=== PATIENT | female | born 1985 | race American Indian/Alaskan Native ===

== ENCOUNTER 2017-04-07 00:15 | Emergency (ER) | payer SELFPAY ==
[2017-04-07 00:57] VITALS: BP 122/72
[2017-04-07] MEDS ORDERED: MOTRIN PO ONE (05:10)
--- NOTE | 2017-04-07 05:10 | Emergency Department Report ---
HPI - General Chief Complaint: Sore Throat Time Seen by Provider: 04/07/17 04:38 - HPI HPI: Patient reports sore throat, left ear pain 3 days. Sore throat is sent to 10. She says she had a fever. Denies any drooling, denies any nausea or vomiting. Denies any cough, chest pain or shortness of breath. She also says she is having pain radiating from her throat to her left ear. Denies any abdominal or back pain. [id number] medication taken without any relief. ED Past Medical Hx - Past Medical History Previous Medical History?: No - Surgical History Past Surgical History?: No Additional Surgical History: vaginal x3 - Family History Family history: no significant - Social History Smoking Status: Current Every Day Smoker Substance Use Type: Alcohol - Medications Home Medications: Home Medications Medication Instructions Recorded Confirmed Last Taken Type HYDROcodone/APAP 5-325 [[place] 1 each PO Q6HR PRN #12 tablet 06/24/14 Unknown Rx 5/325] Ondansetron [Zofran] 8 mg PO Q8HR PRN #12 tablet 06/24/14 Unknown Rx Cephalexin [Keflex] 500 mg PO BID #14 capsule 12/07/15 Unknown Rx Sulfamethoxazole/Trimethoprim 1 each PO BID #14 tablet 12/07/15 Unknown Rx [Bactrim DS TAB] Cetirizine HCl [ZyrTEC] 10 mg PO QDAY #10 capsule 04/07/17 Unknown Rx Ibuprofen [Motrin 800 MG tab] 800 mg PO Q8H PRN #15 tablet 04/07/17 Unknown Rx Penicillin V Potassium 500 mg PO Q8H 10 Days #30 tablet 04/07/17 Unknown Rx ED Review of Systems ROS: Stated complaint: SORE THROAT,LEFT EAR PAIN Other details as noted in HPI Comment: All other systems reviewed and negative Constitutional: fever Eyes: denies: eye pain, eye discharge ENT: ear pain, throat pain. denies: dental pain, hearing loss, epistaxis, congestion Respiratory: no symptoms reported Cardiovascular: denies: chest pain, palpitations, dyspnea on exertion, orthopnea , edema, syncope, paroxysmal nocturnal dyspnea Gastrointestinal: denies: abdominal pain, nausea, vomiting, constipation Genitourinary: denies: dysuria, frequency, hematuria, discharge Musculoskeletal: denies: back pain, joint swelling, arthralgia, myalgia Skin: denies: rash Neurological: denies: headache Physical Exam - Physical Exam Vital Signs: Vital Signs 04/07/17 04/07/17 00:49 00:54 Temperature 99.1 F 99.1 F Pulse Rate 61 59 L Respiratory 18 18 Rate Blood Pressure 122/72 122/72 O2 Sat by Pulse 97 99 Oximetry General: This is a 31-year-old female well-nourished well-developed Physical Exam: Head: Normocephalic atraumatic Ears:BIateral TM congested without erythema and loss of bony landmarks. Chirag EAC with normal exam. No mastoid bone tenderness. Mouth: Moist, no pharyngeal erythema or exudate . Bilateral tonsillar erythema and enlarged at 2+ without exudate. UVULA midline and oral airways patent. No peritonsillar abscess. Neck: Nontender to palpate, supple, normal range of motion. Positive anterior cervical adenopathy. No c-spine tenderness. Extremity: No clubbing, cyanosis or edema. +2 pulses all extremities and no neurovascular compromise Abdomen:, Nontender to palpate in all quadrants, no guarding or rebound tenderness and no CVA tenderness. Normal bowel sounds in all quadrants Nose: Bilateral nasal mucosa congested with clear drainage. Maxillary and frontal sinuses non-tender to palpate. Eyes: Bilateral Sclerae and conjunctiva without injection. Bilateral pupils equal and reactive to light. Bilateral lids are normal. Normal accommodation.BEOMI Lungs: Clear to auscultate bilaterally, no rhonchi wheezes or rales. Normal work of breathing and no chest wall tenderness CV: S1, S2. Regular rate and rhythm negative murmur. Capillary refill is less than 3 seconds Skin: Clean dry and intact, no rashes or lesions Psych: Normal mood and behavior ED Course Vital Signs 04/07/17 04/07/17 00:49 00:54 Temperature 99.1 F 99.1 F Pulse Rate 61 59 L Respiratory 18 18 Rate Blood Pressure 122/72 122/72 O2 Sat by Pulse 97 99 Oximetry - Reevaluation(s) Reevaluation #1: 04/07/17 06:03 Patient received Motrin 800 mg emergency room along with oral hydration and tolerated well ED Medical Decision Making - Medical Decision Making ED course: Patient here complaining of sore throat and left ear pain 3 days found to have upper respiratory infection and tonsillitis. Patient was given Motrin 800 mg emergency room for pain and fever. She tolerated oral liquids without any difficulties. Patient started on penicillin VK for a tonsillitis. I discussed diagnosis, treatment plan and follow-up with patient and she voiced understanding. Patient discharged home in stable condition with prescription for Motrin and penicillin V. [facility] at some [facility] as she does not have a primary care doctor Critical care attestation.: If time is entered above; I have spent that time in minutes in the direct care of this critically ill patient, excluding procedure time. ED Disposition Clinical Impression: Left ear pain, Fever and chills Acute tonsillitis Qualifiers: Pharyngitis/tonsillitis etiology: unspecified etiology Qualified Code(s): J03.90 - Acute tonsillitis, unspecified Upper respiratory infection Qualifiers: URI type: unspecified URI Qualified Code(s): J06.9 - Acute upper respiratory infection, unspecified Disposition: - TO HOME OR SELFCARE Is pt being admited?: No Does the pt Need Aspirin: No Condition: Stable Instructions: Tonsillitis (ED), Upper Respiratory Infection (ED), Fever in Adults (ED) Additional Instructions: Please take antibiotic as prescribed. [facility] Take Motrin for fever and/or pain as prescribed Gargle with warm salt water and this will help her sore throat please follow up at [facility] in 2-3 days Prescriptions: Cetirizine HCl [ZyrTEC] 10 mg PO QDAY #10 capsule Ibuprofen [Motrin 800 MG tab] 800 mg PO Q8H PRN #15 tablet PRN Reason: Pain/FEVER Penicillin V Potassium 500 mg PO Q8H 10 Days #30 tablet Referrals: [facility] [Outside] - 2-3 Days Forms: Work/School Release Form(ED)
[2017-04-07] MEDS ORDERED: VEETIDS PO ONE (05:16)
== END 2017-04-07 06:25 | disposition home or self-care (01) ==
LOC: ED 00:15
DX: H92.02 Otalgia, left ear (principal); F17.200 Nicotine dependence, unspecified, uncomplicated
CPT/HCPCS: 99282

== ENCOUNTER 2019-03-16 14:23 | Emergency (ER) | payer SELFPAY ==
--- NOTE | 2019-03-16 16:33 | Event Note ---
ED Screening Note ED Screening Note: two months ago had a DNC states she is having pelvic states she is having vaginal discharge no fever no n/v/d PMHx none allergy: percocet LNMP: 02/13/19 This initial assessment/diagnostic orders/clinical plan/treatment(s) is/are subject to change based on patients health status, clinical progression and re- assessment by fellow clinical providers in the ED. Further treatment and workup at subsequent clinical providers discretion. Patient/guardian urged not to elope from the ED as their condition may be serious if not clinically assessed and managed. Initial orders include: labs, UA, US
[2019-03-16 16:50] LABS: Basophils % (Auto) 0.6 % (0.0-1.8); Eosinophils # (Auto) 0.1 K/mm3 (0.0-0.4); Eosinophils % (Auto) 1.6 % (0.0-4.3); Hemoglobin 13.5 gm/dl (10.1-14.3); Lymphocytes # (Auto) 2.6 K/mm3 (1.2-5.4); Lymphocytes % (Auto) 37.5 % (13.4-35.0); Mean Corpuscular HGB Conc 34 % (30-34); Mean Corpuscular Volume 90 fl (79-97); Monocytes # (Auto) 0.5 K/mm3 (0.0-0.8); Monocytes % (Auto) 6.9 % (0.0-7.3); Platelet Count 234 K/mm3 (140-440); Red Blood Count 4.47 M/mm3 (3.65-5.03); Red Cell Distribution Width 13.9 % (13.2-15.2)
[2019-03-16 17:18] LABS: Alanine Aminotransferase 27 units/L (7-56); Albumin 4.4 g/dL (3.9-5); BUN/Creatinine Ratio 15; Blood Urea Nitrogen 12 mg/dL (7-17); Calcium 9.3 mg/dL (8.4-10.2); Hemolysis Index 81
[2019-03-16 18:09] LABS: Bilirubin,Urine NEG (Negative); Blood,Urine NEG (Negative); Color,Urine Yellow (Yellow); Mucus,Urine 3+ /HPF; Protein,Urine <15 mg/dL mg/dL (Negative)
--- NOTE | 2019-03-16 20:29 | Ultrasound Report ---
ULTRASOUND PELVIS INDICATION / CLINICAL INFORMATION: pelvic pain, DNC two months ago. TECHNIQUE: Transabdominal and Transvaginal. Duplex Color Doppler used: Yes. COMPARISON: None available FINDINGS: UTERUS: Present. - Appearance (if present): No significant abnormality. - Size in cm (if present): 11.0 x 6.2 x 7.0. - Endometrial Complex (if present): No significant abnormality.. Thickness in cm (if measured) = 1.38 - Mass lesions: None. - Additional findings: None. RIGHT ADNEXA: No significant ovarian cyst or mass (normal follicle seen). Normal color Doppler blood flow. LEFT ADNEXA: No significant ovarian cyst or mass. Normal color Doppler blood flow. URINARY BLADDER: No significant abnormality. FREE FLUID: None. ADDITIONAL FINDINGS: None. IMPRESSION: 1. No significant abnormality. Signer Name: Jaret Recio MD Signed: 03/16/2019 8:25 PM Workstation Name: [id number]
--- NOTE | 2019-03-16 23:01 | Emergency Department Report ---
ED General Adult HPI - General Chief complaint: Extremity Injury, Upper Stated complaint: FINGER SWOLLEN Time Seen by Provider: 03/16/19 16:31 Source: patient Mode of arrival: Ambulatory Limitations: No Limitations - History of Present Illness Initial comments: two months ago had a DNC states she is having pelvic states she is having vaginal discharge no fever no n/v/d PMHx none allergy: percocet LNMP: 02/13/19 Onset/Timin -: week(s) - Related Data Previous Rx's Medication Instructions Recorded Last Taken Type Ondansetron (Nf) [Zofran TAB] 8 mg PO Q8HR PRN #12 tablet 06/24/14 Unknown Rx Cetirizine HCl [ZyrTEC 10mg cap] 10 mg PO QDAY #10 capsule 04/07/17 Unknown Rx Ibuprofen [Motrin 800 MG tab] 800 mg PO Q8H PRN #15 tablet 04/07/17 Unknown Rx Polyethylene Glycol 3350 [Miralax 17 gm PO QDAY #30 powd.pack 02/06/18 Unknown Rx 3350] Sennosides/Docusate [Senokot S] 2 tab PO Q12H PRN #30 tablet 02/06/18 Unknown Rx metroNIDAZOLE [Flagyl TAB] 500 mg PO Q12HR #12 tablet 02/06/18 Unknown Rx Allergies Allergy/AdvReac Type Severity Reaction Status Date / Time No Known Allergies Allergy Unverified 06/24/14 07:06 ED Review of Systems ROS: Stated complaint: FINGER SWOLLEN Other details as noted in HPI ED Past Medical Hx - Past Medical History Previous Medical History?: No - Surgical History Past Surgical History?: No Additional Surgical History: vaginal x3 - Social History Smoking Status: Current Every Day Smoker Substance Use Type: Alcohol - Medications Home Medications: Home Medications Medication Instructions Recorded Confirmed Last Taken Type Ondansetron (Nf) [Zofran TAB] 8 mg PO Q8HR PRN #12 tablet 06/24/14 Unknown Rx Cetirizine HCl [ZyrTEC 10mg cap] 10 mg PO QDAY #10 capsule 04/07/17 Unknown Rx Ibuprofen [Motrin 800 MG tab] 800 mg PO Q8H PRN #15 tablet 04/07/17 Unknown Rx Polyethylene Glycol 3350 [Miralax 17 gm PO QDAY #30 powd.pack 02/06/18 Unknown Rx 3350] Sennosides/Docusate [Senokot S] 2 tab PO Q12H PRN #30 tablet 02/06/18 Unknown Rx metroNIDAZOLE [Flagyl TAB] 500 mg PO Q12HR #12 tablet 02/06/18 Unknown Rx ED Physical Exam - General Limitations: No Limitations General appearance: alert, in no apparent distress - Head Head exam: Present: atraumatic, normocephalic - Eye Eye exam: Present: normal appearance - ENT ENT exam: Present: mucous membranes moist - External exam: Present: normal external exam Speculum exam: Present: vaginal discharge. Absent: cervical discharge Bi-manual exam: Present: normal bi-manual exam ED Course Vital Signs 03/16/19 03/16/19 14:33 23:51 Temperature 98.3 F 98.0 F Pulse Rate 71 70 Respiratory 16 16 Rate Blood Pressure 118/78 Blood Pressure 148/86 [Right] O2 Sat by Pulse 100 Oximetry ED Medical Decision Making - Lab Data Result diagrams: 03/16/19 16:42 03/16/19 16:42 - Medical Decision Making two months ago had a DNC states she is having pelvic states she is having vaginal discharge no fever no n/v/d PMHx none allergy: percocet LNMP: 02/13/19 Critical care attestation.: If time is entered above; I have spent that time in minutes in the direct care of this critically ill patient, excluding procedure time. ED Disposition Clinical Impression: Vaginal discharge, Jammed interphalangeal joint of finger of right hand Disposition: DC-01 TO HOME OR SELFCARE Is pt being admited?: No Does the pt Need Aspirin: No Condition: Stable Additional Instructions: Wet prep is negative for bacteria vaginosis, Trichomonas in Yeast infection. Please follow-up with your primary care doctor or Dr. Lopez. You are able to bring your picture ID to medical records in the next 5-7 days to check for your gonorrhea and chlamydia testing. Please follow up at the health Department. Referrals: PRIMARY CAREMD [Primary Care Provider] - 3-5 Days BELKYS LOPEZ MD [Staff Physician] - 3-5 Days [facility] [Provider Group] - 3-5 Days Forms: Work/School Release Form(ED)
[2019-03-16 23:52] VITALS: BP 148/86
== END 2019-03-16 23:51 | disposition home or self-care (01) ==
LOC: ED 14:23
DX: N89.8 Other specified noninflammatory disorders of vagina (principal); M79.89 Other specified soft tissue disorders; F17.200 Nicotine dependence, unspecified, uncomplicated; F10.10 Alcohol abuse, uncomplicated; Z79.899 Other long term (current) drug therapy
CPT/HCPCS: 36415; 76830; 76856; 80053; 81001; 84702; 85025; 87210; 87591

== ENCOUNTER 2019-08-30 12:00 | Emergency (ER) | payer OTHER ==
[2019-08-30 14:39] VITALS: BP 112/81
--- NOTE | 2019-08-30 14:40 | Event Note ---
ED Screening Note Date of service: 08/30/19 Time: 14:39 ED Screening Note: Patient complains of chills, fever of 100.6, chest congestion, throat pain, and malaise for the past 3 days. She denies any known COVID sick contacts She denies any shortness of breath, but admits to headache and body aches This initial assessment/diagnostic orders/clinical plan/treatment(s) is/are subject to change based on patients health status, clinical progression and re- assessment by fellow clinical providers in the ED. Further treatment and workup at subsequent clinical providers discretion. Patient/guardian urged not to elope from the ED as their condition may be serious if not clinically assessed and m anaged. Initial orders include: CXR strep
[2019-08-30] MEDS ORDERED: BENZONATATE 100 MG CAP PO ONE (15:07)
--- NOTE | 2019-08-30 15:30 | XRay Report ---
CHEST 2 VIEWS INDICATION / CLINICAL INFORMATION: fever, pain. COMPARISON: 07/28/2019 FINDINGS: SUPPORT DEVICES: None. HEART / MEDIASTINUM: No significant abnormality. LUNGS / PLEURA: No significant pulmonary or pleural abnormality. .No pneumothorax. ADDITIONAL FINDINGS: There is mild scoliotic curvature in the thoracolumbar spine. IMPRESSION: 1. No acute findings. Signer Name: Saeed Martins MD Signed: 08/30/2019 3:26 PM Workstation Name: [id number]
--- NOTE | 2019-08-30 16:41 | Emergency Department Report ---
Upper Respiratory HPI - HPI Chief Complaint: Upper Respiratory Infection Stated Complaint: FEVER,COUGH Time Seen by Provider: 08/30/19 14:34 Duration: 3 Days URI Symptoms: Rhinorrhea: No, Sore Throat: Yes, Ear Pain: No, Cough: Yes, Shortness of Breath: No, Sick Contacts: No, Unable to Take Fluids: No, Urine Output Abnormal: No, Listless Behavior: No Other History: This is a 34-year-old female nontoxic, well nourished in appearance, no acute signs of distress presents to the ED with c/o of nonproductive cough, subective fever, sore throat, chills, rhinorrhea, nasal congestion x3 days. Patient denies any sick contacts. Has any drooling or hoarseness. Patient denies any recent travels, long car, recent hospital stays. Patient denies any calf pain or calf tenderness. Patient denies any chest pain, short of breath, nausea, vomiting, hemoptysis, numbness, tingling, headache or stiff neck. - Home Meds and Allergies Home Medications: Previous Rx's Medication Instructions Recorded Last Taken Type Ondansetron (Nf) [Zofran TAB] 8 mg PO Q8HR PRN #12 tablet 06/24/14 Unknown Rx Cetirizine HCl [ZyrTEC 10mg cap] 10 mg PO QDAY #10 capsule 04/07/17 Unknown Rx Ibuprofen [Motrin 800 MG tab] 800 mg PO Q8H PRN #15 tablet 04/07/17 Unknown Rx Sennosides/Docusate [Senokot S] 2 tab PO Q12H PRN #30 tablet 02/06/18 Unknown Rx metroNIDAZOLE [Flagyl TAB] 500 mg PO Q12HR #12 tablet 02/06/18 Unknown Rx polyethylene glycoL 3350 [Miralax 17 gm PO QDAY #30 powd.pack 02/06/18 Unknown Rx 3350] HYDROcodone/APAP 5-325 [[place] 1 each PO Q6HR PRN #10 tablet 07/28/19 Unknown Rx 5/325] Ibuprofen [Motrin 800 MG tab] 800 mg PO Q8HR PRN #15 tablet 07/28/19 Unknown Rx cephALEXin [Keflex] 500 mg PO Q6HR 7 Days #28 capsule 07/28/19 Unknown Rx Benzonatate [Tessalon Perles] 100 mg PO Q8HR PRN #12 capsule 08/30/19 Unknown Rx Allergies/Adverse Reactions: Allergies Allergy/AdvReac Type Severity Reaction Status Date / Time acetaminophen [From Percocet] AdvReac Nausea Verified 08/30/19 14:37 oxycodone [From Percocet] AdvReac Nausea Verified 08/30/19 14:37 ED Review of Systems ROS: Stated complaint: FEVER,COUGH Other details as noted in HPI Constitutional: chills, fever Eyes: denies: eye pain, eye discharge, vision change ENT: throat pain, congestion. denies: ear pain Respiratory: cough. denies: shortness of breath, wheezing Cardiovascular: denies: chest pain, palpitations Endocrine: no symptoms reported Gastrointestinal: denies: abdominal pain, nausea, diarrhea Genitourinary: denies: urgency, dysuria, discharge Musculoskeletal: denies: back pain, joint swelling, arthralgia Skin: denies: rash, lesions Neurological: denies: headache, weakness, paresthesias Psychiatric: denies: anxiety, depression Hematological/Lymphatic: denies: easy bleeding, easy bruising ED Past Medical Hx - Surgical History Additional Surgical History: vaginal x3 - Social History Smoking Status: Never Smoker Substance Use Type: None - Medications Home Medications: Home Medications Medication Instructions Recorded Confirmed Last Taken Type Ondansetron (Nf) [Zofran TAB] 8 mg PO Q8HR PRN #12 tablet 06/24/14 Unknown Rx Cetirizine HCl [ZyrTEC 10mg cap] 10 mg PO QDAY #10 capsule 04/07/17 Unknown Rx Ibuprofen [Motrin 800 MG tab] 800 mg PO Q8H PRN #15 tablet 04/07/17 Unknown Rx Sennosides/Docusate [Senokot S] 2 tab PO Q12H PRN #30 tablet 02/06/18 Unknown Rx metroNIDAZOLE [Flagyl TAB] 500 mg PO Q12HR #12 tablet 02/06/18 Unknown Rx polyethylene glycoL 3350 [Miralax 17 gm PO QDAY #30 powd.pack 02/06/18 Unknown Rx 3350] HYDROcodone/APAP 5-325 [[place] 1 each PO Q6HR PRN #10 tablet 07/28/19 Unknown Rx 5/325] Ibuprofen [Motrin 800 MG tab] 800 mg PO Q8HR PRN #15 tablet 07/28/19 Unknown Rx cephALEXin [Keflex] 500 mg PO Q6HR 7 Days #28 capsule 07/28/19 Unknown Rx Benzonatate [Tessalon Perles] 100 mg PO Q8HR PRN #12 capsule 08/30/19 Unknown Rx ED Bronchiolitis Physical Exam - Exam General: Vital signs noted. No distress. Alert and acting appropriately. Neurologic: Alert and oriented, no deficits. Musculoskeletal: Unremarkable. ED Bronchiolitis Tests - Testing Testing: CXR: Normal/Negative ED Physical Exam - General Limitations: No Limitations General appearance: alert, in no apparent distress - Head Head exam: Present: atraumatic, normocephalic - Eye Eye exam: Present: normal appearance - ENT ENT exam: Present: normal exam, normal orophraynx - Neck Neck exam: Present: normal inspection, full ROM. Absent: tenderness, meningismus, lymphadenopathy - Respiratory Respiratory exam: Present: normal lung sounds bilaterally. Absent: respiratory distress, wheezes, rales, rhonchi, stridor, chest wall tenderness, accessory mus myles use, decreased breath sounds, prolonged expiratory - Cardiovascular Cardiovascular Exam: Present: regular rate, normal rhythm, normal heart sounds. Absent: bradycardia, tachycardia, irregular rhythm, systolic murmur, diastolic murmur, rubs, gallop - Extremities Exam Extremities exam: Present: normal inspection, full ROM - Back Exam Back exam: Present: normal inspection, full ROM - Neurological Exam Neurological exam: Present: alert, oriented X3, normal gait - Psychiatric Psychiatric exam: Present: normal affect, normal mood - Skin Skin exam: Present: warm, dry, intact, normal color. Absent: rash ED Course Vital Signs 08/30/19 14:33 Temperature 98.8 F Pulse Rate 71 Respiratory 18 Rate Blood Pressure 112/81 O2 Sat by Pulse 100 Oximetry - Reevaluation(s) Reevaluation #1: 08/30/19 16:39 Patient is speaking in full sentences with no signs of distress noted. ED Medical Decision Making - Lab Data Lab Results 08/30/19 Range/Units Unknown Group A Strep Rapid Negative (Negative) - Radiology Data Referring Physician: PAPITO DALTON Patient Name: TIAGO CARPIO Date of : 1985 Sex: Female Report Date: 2019-08-30 Report Status: Finalized [address] [place] [address] XRay Report Signed Patient: TIAGO CARPIO MR#: [id number] : 1985 Acct:[id number] Age/Sex: 34 / F ADM Date: 08/30/19 Loc: ED Attending Dr: Ordering Physician: PAPITO DALTON Date of Service: 08/30/19 Procedure(s): XR chest routine 2V Accession Number(s): [id number] cc: PAPITO DALTON Fluoro Time In Minutes: CHEST 2 VIEWS INDICATION / CLINICAL INFORMATION: fever, pain. COMPARISON: 07/28/2019 FINDINGS: SUPPORT DEVICES: None. HEART / MEDIASTINUM: No significant abnormality. LUNGS / PLEURA: No significant pulmonary or pleural abnormality. .No pneumothorax. ADDITIONAL FINDINGS: There is mild scoliotic curvature in the thoracolumbar spine. IMPRESSION: 1. No acute findings. Signer Name: Saeed Martins MD Signed: 08/30/2019 3:26 PM Workstation Name: [id number] Transcribed By: Dictated By: Saeed Martins MD Electronically Authenticated By: Saeed Martins MD Signed Date/Time: 08/30/19 1526 DD/ 1525 TD/TT: - Medical Decision Making This is a 34-year-old female that presents with viral bronchitis. Patient is stable and was examined by me. Chest x-ray has been obtained and dictated by radiologist with normal exam. Patient is notified of x-ray results with no questions noted. Patient does not meet clinical concerns of COVID-19 but patient was instructed and educated on signs and symptoms and to self quarantine and seek medical attention as soon as possible if symptoms does occur. Negative strep swab. Patient was instructed to increase hydration, rest and take Tylenol for fever episodes. Patient received tesslone perrls in the ED. Vitals stable. Patient is nonfebrile and normal heart rate. Patient was instructed Follow-up with a primary care doctor in 3-5 days or if symptoms worsen and continue return to emergency room as soon as possible. At time time of discharge, the patient does not seem toxic or ill in appearance. No acute signs of distress noted. Patient agrees to discharge treatment plan of care. No further questions noted by the patient.nt. Critical care attestation.: If time is entered above; I have spent that time in minutes in the direct care of this critically ill patient, excluding procedure time. ED Disposition Clinical Impression: Viral upper respiratory illness Disposition: TO HOME OR SELFCARE Is pt being admited?: No Does the pt Need Aspirin: No Condition: Stable Additional Instructions: Follow-up with a primary care doctor in 3-5 days or if symptoms worsen and continue return to emergency room as soon as possible. Prescriptions: Benzonatate [Tessalon Perles] 100 mg PO Q8HR PRN #12 capsule PRN Reason: Cough Referrals: PRIMARY MD ERIKA [Primary Care Provider] - 3-5 Days BELKYS IBANEZ MD [Staff Physician] - 3-5 Days [facility] [Provider Group] - 3-5 Days Forms: Work/School Release Form(ED)
== END 2019-08-30 16:56 | disposition home or self-care (01) ==
LOC: ED 12:00
DX: J06.9 Acute upper respiratory infection, unspecified (principal); B97.89 Other viral agents as the cause of diseases classified elsewhere; Z79.899 Other long term (current) drug therapy; Z88.8 Allergy status to other drugs, medicaments and biological substances
CPT/HCPCS: 71046; 87116; 87430; 99283

== ENCOUNTER 2021-01-07 02:26 | Emergency (ER) | payer OTHER | END 2021-01-07 04:18 | disposition left against medical advice (07) | LOC: ED 02:26 | DX: S60.459A Superficial foreign body of unspecified finger, initial encounter (principal); Z53.21 Procedure and treatment not carried out due to patient leaving prior to being seen by health care provider ==